=== PATIENT | female | born 1955 | race African-American/Black ===

== ENCOUNTER 2019-04-13 00:11 | Emergency (ER) | payer BC ==
[~2019-04-13] VITALS: Ht 167.6 cm; Wt 73.0 kg
[2019-04-13 03:32] VITALS: BP 158/88
== END 2019-04-13 03:33 | disposition home or self-care (01) ==
LOC: ER 01:24
DX: I10 Essential (primary) hypertension (principal)
CPT/HCPCS: 99283

== ENCOUNTER 2019-05-03 22:47 | Emergency (ER) | payer BC ==
[~2019-05-03] VITALS: Ht 167.6 cm; Wt 69.2 kg
[2019-05-04 02:11] LABS: HEMOGLOBIN. 11.2 g/dL (12.0-16.0); MEAN CORPUSCULAR HEMOGLOBIN 30.2 pg (28.0-32.0); MEAN CORPUSCULAR VOLUME 89.4 fL (81.0-99.0); MEAN PLATELET VOLUME 8.6 fl (7.4-10.4); PLATELET 214 x1000/uL (130-400); RED BLOOD CELL COUNT 3.69 mill/uL (4.2-5.4); RED CELL DISTRIBUTION WIDTH 13.1 % (11.6-14.6)
[2019-05-04 02:14] LABS: CHLORIDE 105 mEq/L (98-107)
[2019-05-04 03:24] LABS: PLATELET ESTIMATE NORMAL
[2019-05-04 04:43] VITALS: BP 125/79
== END 2019-05-04 05:26 | disposition home or self-care (01) ==
LOC: ER 22:47
DX: I10 Essential (primary) hypertension (principal); R94.31 Abnormal electrocardiogram [ECG] [EKG]
CPT/HCPCS: 36415; 71045; 80048; 85025; 93005; 99284; Z7610